=== PATIENT | female | born 1995 | race African-American/Black ===

== ENCOUNTER 2016-11-23 16:14 | Emergency (ER) | payer MEDICAID ==
[2016-11-23] MEDS ORDERED: NS 1,000 ML IV ONE (16:54)
[2016-11-23] MEDS ORDERED: ONDANSETRON 4 MG/2 ML VIAL IVP ONE (16:54)
[2016-11-23] MEDS ORDERED: FAMOTIDINE 20 MG/2 ML SDV IVP ONE (17:08)
[2016-11-23] MEDS ORDERED: MAALOX/LIDO/HYOSC GI COCKTAIL 55 ML BOTTLE PO ONE (17:08)
--- NOTE | 2016-11-23 17:19 | EDPHY ---
H & P Stated Complaint: Abd pain/ cp Source: Patient - Personal History LMP (Females 10-55): Current Tetanus/Diphtheria Vaccine: Yes Current Tetanus Diphtheria and Acellular Pertussis (TDAP): Yes - Medical/Surgical History Hx Asthma: No Hx Chronic Respiratory Disease: No Hx Diabetes: No Hx Cardiac Disease: No Hx Renal Disease: No Hx Cirrhosis: No Hx Alcoholism: No Hx HIV/AIDS: No Hx Splenectomy or Spleen Trauma: No Other PMH: Denies - Family History Significant Family History: No pertinent family hx, Other (Denies) - Social History Smoking Status: Never smoked Alcohol Use: None Drug Use: None Time Seen by Provider: 11/23/16 17:15 HPI/ROS: HPI: 21-year-old female presents to emergency department with chief concern abdominal pain, nausea. Reports onset of upper epigastric discomfort that is 7/ 10 and tight in nature that onset suddenly at 11:00 a.m.. Reports an episode of nausea yesterday. Reports a headache that lasted for 30 minutes today and was mild, associated with dizziness and blurry vision. It resolved after 30 minutes and has not returned. Reports chest pain times 10 minutes today that was generalized, and has resolved and not returned. Reports bilateral groin discomfort intermittently throughout the day. Denies fever, chills, myalgias, URI symptoms, vomiting, diarrhea, urinary symptoms, vaginal bleeding or discharge, pelvic cramping or pain, back or flank pain, calf pain or swelling, recent prolonged car or plane travel, personal or family history of coagulopathy , personal or family history of acute coronary syndrome. 1 para 0. 21 weeks 5 days . Ob at [facility]. ROS:10 point review of systems is negative other than as stated in HPI (Francia Toribio) - Social History Additional Social History: [employer] student (Francia Toribio) - Physical Exam Exam: T 36.9, 90, 14, 104/66, 96% on room air General: Awake, alert, calm, cooperative. No acute distress. Head: Normalocephalic. Atraumatic. EENT: PERRLA. EOMI. No pallor or injection. Anicteric. No nystagmus. No injection. TMs intact bilaterally with normal landmarks. No rhinnorhea, nasal passages clear. Oropharynx without redness, exudates, or lesions. Tonsils 2+ bilaterally, no exudates. Neck: Supple, nontender. No lymphadenopathy. Full range of motion. No meningismus. Respiratory: Breathing unlabored. Breath sounds equal bilaterally and clear to auscultation. No adventitious sounds. Oxygen saturation 96% on room air CV: Chest nontender, atraumatic. Heart rate regular. No murmur, distal pulses 2+ bilaterally. Brisk cap refill all extremities. GI: Abdomen soft, mild upper epigastric tenderness equally across the abdomen. Bowel sounds normoactive and positive x4 quadrants. No guarding, no rebound, no right lower quadrant tenderness. : No suprapubic tenderness. No CVA or flank tenderness. Neuro: Alert. Oriented x 3. Speech clear. Nonfocal cranial nerves throughout. Sensation intact all extremities.No focal neuro deficit. CN II through XII intact. Rapid alternating hand movements intact. Finger to nose intact. Heel to de paz intact. Negative Romberg. Negative pronator drift. Gait even and steady. Memory and recall of 3/3 objects at 5 minutes intact. Upper and lower extremity DTRs 2+. Skin: Skin warm, dry, intact. No rashes, abrasions, or lacerations. Skin turgor normal. Extremities: Full range of motion in all 4 extremities. Strength 5+ all extremities. No calf pain or swelling. Negative Homans bilaterally. (Francia Toribio) Constitutional: Initial Vital Signs Temperature (C) 36.9 C 11/23/16 16:24 Heart Rate 90 11/23/16 16:24 Respiratory Rate 14 11/23/16 16:24 Blood Pressure 104/66 11/23/16 16:24 O2 Sat (%) 96 11/23/16 16:24 O2 Delivery Mode Room Air Allergies/Adverse Reactions: Penicillins Allergy (Verified 11/23/16 16:23) Home Medications: Medication Instructions Recorded Oseltamivir Phosphate [Tamiflu 75 75 mg PO BID #10 cap 11/22/14 mg (RX)] Medical Decision Making - Diagnostics EKG Interpretation: 12-lead EKG interpreted by me; official reading is in trace master. My interpretation is sinus rhythm, rate 67, no acute ischemic changes. (Abhi Becerra ) ED Course/Re-evaluation: 21-year-old 21 week 5 day female with no significant past medical history presents to the emergency department with chief concern upper abdominal discomfort, blurry vision, nausea. This patient had a headache for 30 minutes today that was quite mild and has resolved entirely and not returned. It was associated with a transient episode of dizziness. She reports chest pain times 10 minutes today only. It resolved and has not returned. She has no calf pain or swelling. She has no recent long air or car travel. There is no personal or family history of coagulopathy. Heart rate 74. Oxygen saturation 100% on room air. I am not concerned for pulmonary embolism. Her neuro exam is nonfocal. She is nontoxic, afebrile, vitals are stable. Presently she is without any nausea. Abdominal discomfort is 5/10 and mild. She declines any pain medication. Will check EKG, labs, and give her 20 IV Pepcid and a GI cocktail. 1830: EKG shows a sinus rhythm, rate 67, normal intervals, no axis deviation, no evidence of ischemia. White count 8340. No left shift. BMP, LFTs, lipase unremarkable. Urinalysis is negative for protein or evidence of infection. Patient's symptoms entirely resolved after 20 mg IV Pepcid and a GI cocktail. She has no nausea, no headache, no shortness of breath, chest pain, or no abdominal pain. I have consulted on-call OB doctor Armen who feels this patient is safe for discharge home. Vitals remained stable. She has been counseled regarding need for follow up promptly with her Ob early next week. She has also been counseled to return promptly to the ED should symptoms worsen in any way. Verbalizes understanding of this plan and agrees to do so. (Francia Toribio) Differential Diagnosis: Differential diagnosis includes but is not limited to and in no particular order GERD, dyspepsia, cholecystitis/cholelithiasis, pancreatitis, preeclampsia , pulmonary embolism, ACS (Francia Toribio) - Data Points Laboratory Results: Laboratory Results 11/23/16 17:05 11/23/16 17:05 Medications Given: Discontinued Medications Famotidine (Pepcid) 20 mg IVP EDNOW ONE Stop: 11/23/16 17:09 Last Admin: 11/23/16 17:15 Dose: 20 mg Sodium Chloride (Ns) 1,000 mls @ 0 mls/hr IV ONCE ONE PRN Reason: Wide Open Stop: 11/23/16 16:55 Last Admin: 11/23/16 17:16 Dose: 1,000 mls Miscellaneous Medication (Gi Cocktail) 55 ml PO EDNOW ONE Stop: 11/23/16 17:09 Last Admin: 11/23/16 17:15 Dose: 55 ml Ondansetron HCl (Zofran) 4 mg IVP EDNOW ONE Stop: 11/23/16 16:55 Last Admin: 11/23/16 17:23 Dose: Not Given Departure - Departure Disposition: Home, Routine, Self-Care Clinical Impression: Upper abdominal pain Qualifiers: Weeks of gestation: 21 weeks Qualifier Code: (Z3A.21) 21 weeks gestation of Condition: Good Instructions: (ED), Acute Abdominal Pain (ED) Additional Instructions: Plan: Call your auto damage appraiser at [facility] and follow up promptly tomorrow or Sunday without fail--When you call to schedule appointment, please let the office know you are an "ER follow up" appointment" For worsening symptoms return promptly to the emergency department Referrals: NONE *PRIMARY CARE P,. [Primary Care Provider] - As per Instructions Dariana Ayers MD [Medical Doctor] - As per Instructions
[2016-11-23 17:21] LABS: % IMMATURE GRANULYOCYTES 0.5 % (0.0-1.1); ABSOLUTE IMMATURE GRANULOCYTES 0.04 10^3/uL (0.00-0.10); ADD DIFF? NO; ADD MORPH? NO; ADD SCAN? NO; ATYPICAL LYMPHOCYTE FLAG 20 (0-99); FRAGMENT RBC FLAG 0 (0-99); HEMATOCRIT 32.6 % (38.0-47.0); HEMOGLOBIN 10.8 g/dL (12.6-16.3); LEFT SHIFT FLG 0 (0-99); LIPEMIA HEMOLYSIS FLAG 80 (0-99); MEAN CELL HEMOGLOBIN 27.6 pg (27.9-34.1); MEAN CELL HEMOGLOBIN CONCENTR. 33.1 g/dL (32.4-36.7); MEAN CELL VOLUME 83.2 fL (81.5-99.8); MEAN PLATELET VOLUME 9.7 fL (8.7-11.7); PLATELET CLUMPS FLAG 0 (0-99); PLATELET COUNT 271 10^3/uL (150-400); RED BLOOD CELL COUNT 3.92 10^6/uL (4.18-5.33); RED CELL DISTRIBUTION WIDTH 13.2 % (11.5-15.2)
[2016-11-23 17:38] LABS: ALANINE AMINOTRANSFERASE 22 IU/L (9-52); ALBUMIN 3.6 g/dL (3.5-5.0); ALKALINE PHOSPHATASE 61 IU/L (38-126); ANION GAP 8 mEq/L (8-16); ASPARTATE AMINOTRANSFERASE 28 IU/L (14-46); BILIRUBIN,TOTAL 0.5 mg/dL (0.1-1.4); BILIRUBIN-CONJUGATED 0.2 mg/dL (0.0-0.5); BILIRUBIN-UNCONJUGATED 0.3 mg/dL (0.0-1.1); CARBON DIOXIDE 22 mEq/l (22-31); CHLORIDE 105 mEq/L (97-110); CREATININE 0.6 mg/dL (0.6-1.0); GLOMERULAR FILTRATION RATE > 60; GLUCOSE 78 mg/dL (70-100); POTASSIUM 4.2 mEq/L (3.5-5.2); SODIUM 135 mEq/L (134-144); TOTAL PROTEIN 6.7 g/dL (6.3-8.2)
--- NOTE | 2016-11-23 17:44 | CPEKG ---
Heart Rate: 67 RR Interval: 896 P-R Interval: 164 QRSD Interval: 80 QT Interval: 388 QTC Interval: 410 P [place]: 36 QRS [place]: 69 T Wave [place]: 37 EKG Severity - NORMAL ECG - EKG Impression: SINUS RHYTHM Electronically Signed By: Abhi Becerra 23-Nov-2016 17:48:07
[2016-11-23 17:52] VITALS: RESP 16; O2SAT 100
[2016-11-23 18:03] LABS: COLOR YELLOW; LEUKOCYTE ESTERASE,URINE NEGATIVE (NEGATIVE); NITRITE,URINE NEGATIVE (NEGATIVE)
[2016-11-23 18:40] VITALS: BP 106/68; PULSE 72; TEMP 98.2
== END 2016-11-23 18:40 | disposition home or self-care (01) ==
DX: O26.892 Other specified pregnancy related conditions, second trimester (principal); R10.13 Epigastric pain; Z3A.21 21 weeks gestation of pregnancy
CPT/HCPCS: 96374